=== PATIENT | male | born 1950 | race Caucasian/White ===

== ENCOUNTER 2019-05-16 14:30 | Outpatient (CLI) | payer MEDICARE, SELFPAY | END 2019-05-16 14:31 | disposition home or self-care (01) | PROVIDERS: PCP Radiology Neuroradiology; Visit Provider Internal Medicine Critical Care Medicine | DX: R91.8 Other nonspecific abnormal finding of lung field (principal) | CPT/HCPCS: 36415; 86698; 87327; 87385 ==

== ENCOUNTER 2019-06-03 14:16 | Outpatient (CLI) | payer MEDICARE, SELFPAY | END 2019-06-03 14:17 | disposition home or self-care (01) | PROVIDERS: PCP Radiology Neuroradiology; Visit Provider Internal Medicine Critical Care Medicine | DX: R91.8 Other nonspecific abnormal finding of lung field (principal); F17.210 Nicotine dependence, cigarettes, uncomplicated | CPT/HCPCS: 94010; 94726; 94729 ==

== ENCOUNTER 2019-06-13 09:48 | Outpatient (CLI) | payer MEDICARE, SELFPAY ==
--- NOTE | 2019-06-13 10:45 | CT_ITS ---
WS: [id number] CT CHEST WITHOUT INTRAVENOUS CONTRAST HISTORY: Lung mass TECHNIQUE: Contiguous 5 mm axial imaging performed on the thorax. Coronal and sagittal reformats are submitted. All CT scans at [facility] use at least one of these dose optimization techniq ues: automated exposure control; mA and/or kV adjustment per patient size (includes targeted exams wh ere dose is matched to clinical indication); or iterative reconstruction. CONTRAST: None DLP: 935.05 mGycm COMPARISON: PET CT 03/22/2019 Lungs and central airway: Mild pulmonary hyperinflation. Multiple nodules in the RIGHT upper lobe as seen on the prior PET/CT of 03/22/2019 are no longer present. Postsurgical changes and some dystrophi c calcifications or clips are noted adjacent to the medial RIGHT upper lobe mediastinum. There is a l inear scar at the RIGHT apex. No new pulmonary nodule or mass identified. No pneumonia. Pleura: No pleural effusion. Heart and pericardium: Cardiac size is normal. Cardiac stent is present along the LEFT anterior desce nding coronary artery. Mediastinum and jenni: Benign calcified lymph nodes. There are several smaller lymph nodes in the prec arinal which are similar in size to 03/22/2019 PET/CT. No increasing adenopathy. Vessels: Mild ectasia ascending aorta to 3.9 cm. Descending aorta is normal caliber. Chest wall and lower neck: No soft tissue masses. Upper abdomen: Benign splenic and hepatic granulomata. No adrenal mass. Osseous structures: Increase in thoracic kyphosis with multilevel degenerative disc disease in the th oracic spine. CT/CT chest wo con [id number] IMPRESSION: 1. Previously described nodules in the RIGHT upper lobe as seen on PET/CT from 03/22/2019 are no longer present. Postsurgical changes now seen in the RIGHT u pper lobe. 2. Stable mediastinal and hilar lymph nodes with no significant adenopathy. 3. Mild pulmonary hypertension and mild ectasia thoracic aorta.
== END 2019-06-13 09:49 | disposition home or self-care (01) ==
LOC: RADWPI 09:54
PROVIDERS: PCP Radiology Neuroradiology; Visit Provider Internal Medicine Critical Care Medicine
DX: I27.20 Pulmonary hypertension, unspecified (principal); I77.810 Thoracic aortic ectasia; R91.8 Other nonspecific abnormal finding of lung field
CPT/HCPCS: 71250

== ENCOUNTER 2019-06-16 07:00 | Outpatient (CLI) | payer MEDICARE, SELFPAY ==
[2019-06-16 09:05] LABS: Alanine Aminotransferase 25 U/L (0-41); Alkaline Phosphatase 97 IU/L (40-130); Anion Gap 15.3 (5-19); Aspartate Amino Transferase 24 U/L (0-40); Basophils % 0.5 %; Blood Urea Nitrogen 14 mg/dL (8-23); Calcium 9.7 mg/dL (8.5-10.5); Carbon Dioxide 26 mmol/L (22-29); Chloride 106 mmol/L (98-107); Eosinophils # 0.1 10^3/uL (0.0-0.8); Eosinophils % 1.3 %; Globulin 3.5 g/dL (1.3-4.6); Glomerular Filtration Rate 83.4 mL/min (90-130); Glucose 95 mg/dL (65-115); Hematocrit 44.4 % (42.0-52.0); Hemoglobin 14.5 g/dL (11.7-16.6); Lymphocytes # 2.4 10^3/uL (0.8-4.8); Lymphocytes % 31.7 %; Mean Corpuscular HGB Conc 32.7 g/dL (30.0-36.0); Mean Corpuscular Hemoglobin 27.5 pg (28.0-34.0); Mean Corpuscular Volume 84.1 fL (80-94); Mean Platelet Volume 10.2 fL (7.4-10.4); Monocytes # 0.6 10^3/uL (0.2-0.9); Monocytes % 7.5 %; Neutrophils # 4.4 10^3/uL (1.8-7.7); Neutrophils % 58.9 %; Nucleated Red Blood Cells % 0 %; Osmolality Calculated 292 mOsm/kg (285-295); Platelet Count 212 10^3/cmm (130-400); Potassium 4.3 mmol/L (3.5-5.1); Red Blood Count 5.28 10^6/uL (4.1-5.3); Sodium 143 mmol/L (136-145); Total Bilirubin 0.6 mg/dL (0.15-1.2); Total Protein 7.5 g/dL (6.6-8.7); White Blood Count 7.5 10^3/uL (4.0-10.0)
[2019-06-16 09:24] LABS: 25 Hydroxy Vitamin D 32 ng/mL (30-100)
[2019-06-16 09:40] LABS: Total Volume Urine 1750 ml
[2019-06-16 09:42] LABS: Calcium 24 Hour Urine 56 mg/24hr (100-300); Urine Calcium Result 3.2 mg/dL
[2019-06-16 09:49] LABS: Calcium 10.2 mg/dL (8.5-10.5); Parathyroid Hormone 27.6 pg/mL (15-65)
== END 2019-06-16 08:00 | disposition home or self-care (01) ==
LOC: LAB 06-26 09:40
PROVIDERS: PCP Radiology Neuroradiology; Visit Provider Internal Medicine Critical Care Medicine
DX: R91.8 Other nonspecific abnormal finding of lung field (principal); D86.9 Sarcoidosis, unspecified; Z79.899 Other long term (current) drug therapy
CPT/HCPCS: 36415; 80053; 82164; 82306; 82310; 82340; 82652; 83970; 85025; 86698; 87385

== ENCOUNTER 2019-06-27 12:43 | Outpatient (CLI) | payer MEDICARE, SELFPAY ==
[2019-06-27 14:40] LABS: Basophils % 0.4 %; Eosinophils # 0.1 10^3/uL (0.0-0.8); Eosinophils % 1.6 %; Hematocrit 43.4 % (42.0-52.0); Hemoglobin 13.7 g/dL (11.7-16.6); Lymphocytes # 2.5 10^3/uL (0.8-4.8); Lymphocytes % 35.5 %; Mean Corpuscular HGB Conc 31.6 g/dL (30.0-36.0); Mean Corpuscular Hemoglobin 26.7 pg (28.0-34.0); Mean Corpuscular Volume 84.4 fL (80-94); Mean Platelet Volume 9.8 fL (7.4-10.4); Monocytes # 0.5 10^3/uL (0.2-0.9); Monocytes % 6.7 %; Neutrophils # 3.9 10^3/uL (1.8-7.7); Neutrophils % 55.7 %; Nucleated Red Blood Cells % 0 %; Platelet Count 232 10^3/cmm (130-400); Red Blood Count 5.14 10^6/uL (4.1-5.3); Red Cell Distribution Width 13.8 % (12.1-15.1)
[2019-06-27 15:01] LABS: Carcinoembryonic Antigen 1.6 ng/mL (0.0-4.7)
[2019-06-27 15:12] LABS: Alanine Aminotransferase 28 U/L (0-41); Albumin Level 3.9 g/dL (3.5-5.2); Alkaline Phosphatase 95 IU/L (40-130); Anion Gap 16.3 (5-19); Aspartate Amino Transferase 29 U/L (0-40); Blood Urea Nitrogen 12 mg/dL (8-23); Calcium 9.4 mg/dL (8.5-10.5); Carbon Dioxide 22 mmol/L (22-29); Chloride 106 mmol/L (98-107); Globulin 2.8 g/dL (1.3-4.6); Glomerular Filtration Rate 66.2 mL/min (90-130); Glucose 108 mg/dL (65-115); Osmolality Calculated 287 mOsm/kg (285-295); Potassium 4.3 mmol/L (3.5-5.1); Sodium 140 mmol/L (136-145); Total Bilirubin 0.2 mg/dL (0.15-1.2); Total Protein 6.7 g/dL (6.6-8.7)
--- NOTE | 2019-06-28 11:19 | ONC CON_ITS ---
Dr. Cornell New Patient Note Patient: Henry Blackwell Unit #: [id number]: 1950 Dicatated By: Malaika Cornell M.D.Date of Visit: Jun 27, 2019 Onc MED New Patient/Consult Referring Physician: Dr. TANESHA SEE M.D. History of Present Illness: Mr. Henry Blackwell , is a 69-year-old gentleman with a history of adenocarcinoma of the rectum which was diagnosed on 02/05/2018 when he underwent colonoscopy exam for history of hematochezia and abdominal pain. As far pathology report adenocarcinoma seen in rectal polyp biopsy whereas transverse colon polyp showed sessile serrated adenoma. CT PET scan done on 02/14/2018 showed very intense area approximately 2 cm in diameter that is high in the rectum consistent with rectal carcinoma and no other abnormality seen subsequently as per Dr. Denny Howell's note, patient underwent low anterior resection and final pathology report showed 2 cm colorectal cancer that was barely into submucosa e.g. T1, N0 lesion only 2 lymph nodes were identified in the specimen. Patient was seen by Dr. Denny howell, medical oncologist who recommended observation alone and had been followed by him on 3 monthly basis and last visit was in March 2019, labs done on 02/22/2019's his CEA was 0.7 and hemoglobin was 13.4 marker 41.9 and but his last CT PET scan done on 03/22/2019 showed enlarging mass in the right upper lobe abutting the mediastinum with increase in metabolic activity size up to 3.2 cm and an additional mass which has developed in the right lung apex abutting pleural margin in the apex with increase metabolic activity SUV of 6 as per patient he was referred to surgeon and underwent excisional biopsy of right upper lobe lung mass and 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 He has seen picking tech there in [place], and later on decided to switch his care to Dr. See in [place] who repeated CT scan of chest on 06/13/2019 which when compared with CT PET scan done on 03/22/2019 showed previously described nodule in the right upper lobe are no longer present and postsurgical changes now seen in the right upper lobe. Stable mediastinal and hilar lymph nodes with no significant adenopathy. As per Dr. 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 Patient denies any melena or hematochezia, denies any abdominal pain, denies any weight loss, denies any jaundice. Patient said during his last visit with Dr. Denny howell in March 2019, his lab workup did not show any evidence of malignancy but PET scan done in March 2019 showed abnormality in the right lung and there was a concern but malignancy, which was later on confirmed as sarcoidosis and now with spontaneous resolution. Past Medical History: Mr. Blackwell's medical history consists of coronary artery disease, gastroesophageal reflux disease, hiatal hernia, history of colon cancer, history of rheumatic fever, and hyperlipidemia. Past Surgical History: Mr. Blackwell's surgical/procedural history consists of bronchoscopy, hernia repair, and stented coronary artery. Medications: Albuterol Sulfate (sensor) 1 Inhalation (of 108 (90 base) mcg/act) Aerosol Powder, Breath Activated Inhalation four times a day PRN, Atorvastatin Calcium 1 Tablet (of 20 mg) Oral at bedtime, Clopidogrel Bisulfate 1 Tablet (of 75 mg) Oral daily, Ferrous Sulfate 1 Tablet (of 325 (65 fe) mg) Oral daily, Finasteride 1 Tablet (of 5 mg) Oral at bedtime, Metoprolol Tartrate 1 Tablet (of 25 mg) Oral daily, Multivitamin Adult 1 Tablet Oral daily, Pantoprazole Sodium 1 Tablet (of 40 mg) Tablet, enteric coated Oral b.i.d. Allergies: Aspirin, HYDROcodone-Acetaminophen, Penicillins, and Sulfa Antibiotics. Social History: Mr. Blackwell is and he is an uknown. Mr. Blackwell quit smoking 48 years ago but had smoked 1.0 pack/day for 3 years. He is a former drinker. Family History: Mr. Blackwell's father is : coronary artery disease. Review Of Symptoms: Constitutional - Appetite is fair and weight is stable. No fever, hot flashes, or night sweats. Positive for chills. Energy level is fair, ENMT - Positive for sinus congestion/drainage. No mouth sores. No sore throat or difficulty swallowing, Hematologic/Lymphatic - No abnormal bruising or bleeding, Respiratory - Positive for shortness of breath. Positive for cough. No pleuritic pain or hemoptysis, Cardiovascular - Positive for pain. No palpitations, Gastrointestinal - Positive for nausea, no vomiting. Occasional heartburn and acid reflux. No diarrhea or constipation. No blood in the stool or black stools, Genitourinary (M) - No dysuria or hematuria. Positive for urinary frequency. No urgency or incontinence, Musculoskeletal - No joint or bone pain, Neurologic - Occasional headache and dizziness. No numbness/paresthesias or other focal neurologic symptoms, Psychiatric - Positive for mild anxiety and depression. No insomnia. Vital Signs: Performed on Jun 27, 2019 13:05: 3, 28.09, 2.12 sq.m, 71.00 in, 98 %, 72 /min, 20 /min, 130/77 mm(hg), 98.9 F (HIGH), and 201.4 lbs (HIGH). Performance Status: 0 - Fully active, able to carry on all predisease activities without restrictions. (ECOG) Physical Examination: ENMT - No oral exudates, ulcers, masses, thrush or mucositis. Oropharynx clear. Tongue normal, Respiratory - Lungs are clear to auscultation without rhonchi or wheezing, Cardiovascular - Regular rate and rhythm of heart, Abdomen - Non-tender, non-distended, Good bowel sounds. No guarding or rebound tenderness. No pulsatile masses, Extremities - no edema. Lab/Imaging: Most recent lab results are not available for this patient. Impression: History of colorectal cancer status post low anterior resection for 2 cm invasive tumor that was barely into submucosa T1,, 2 lymph nodes were identified and examined showed no evidence of disease ,N0 as per medical record, diagnosed in February 2018 had been followed by medical oncologist Dr. Denny jarrett on 3 monthly basis with CEA/LFTs and CT PET scans next Last PET scan done on 03/22/2019 showed right hilar and upper lobe FDG positive lesions, patient underwent right upper lobe excisional biopsy which showed sarcoidosis Follow-up CT scan of chest done on 06/13/2019 showed spontaneous resolution of right hilar abnormalities and postsurgical scar. Now being followed by pulmonology. Plan: Discussed with patient regarding his disease status, as per medical records patient has history of early-stage colorectal cancer with suboptimal lymph node evaluation, diagnosed in February 2018 status post low anterior resection, postoperatively observation alone was recommended and had been followed by Dr. Denny howell, medical oncology with a no evidence of recurrence of disease as per last note from March 2019 and at that time follow-up CT PET scan showed enlarging mass in the right upper lobe abutting mediastinum with increased metabolic activity site 3.3 cm and additional mass which has developed in right lung apex abutting pleural margin in the apex with increased activity. And concern was recurrence of disease and he underwent excisional biopsy of right upper lobe mass which confirmed sarcoidosis and follow-up CT scan done 06/13/2019 confirmed spontaneous resolution of sarcoidosis, as per patient did not take any medicine for this. So clinically, there is no signs symptoms suggestive of recurrence of disease and so far workup done by Dr. Denny howell showed no evidence of recurrence of disease. And at this point we will continue to observe and he will return to clinic in 6 months with CBC CMP and CBC patient was advised to call us in case he has any evidence of gross bleeding or any jaundice or any new symptoms otherwise return to clinic in 6 months with CBC CMP and CEA. Signed By: Malaika Cornell M.D. <<Signature on File>>
== END 2019-06-27 12:44 | disposition home or self-care (01) ==
LOC: ONCMED 12:45
PROVIDERS: PCP Family Medicine; Referring Provider Internal Medicine Critical Care Medicine; Visit Provider Internal Medicine Hematology & Oncology
DX: Z85.038 Personal history of other malignant neoplasm of large intestine (principal); Z90.49 Acquired absence of other specified parts of digestive tract; Z87.09 Personal history of other diseases of the respiratory system
CPT/HCPCS: 36415; 80053; 82378; 85025; 99203

== ENCOUNTER 2019-09-04 16:21 | Outpatient (CLI) | payer MEDICARE, SELFPAY ==
--- NOTE | 2019-09-04 17:01 | XR_ITS ---
WS: [id number] XR chest 2V* [id number] REASON FOR EXAM: Lung Mass FINDINGS: Postop changes are seen off the azygos lobe region on the right there is no recurrent yuriy s in this area is seen. The heart is normal. The remaining lung abdalla show normal aeration. No pneumonia, pleural effusion, pulmonary edema, and no mass effect is seen. The hilum and apices normal. XR/XR chest 2V* [id number] IMPRESSION: Postop changes right upper lung but no recurrent masses seen.
== END 2019-09-04 16:22 | disposition home or self-care (01) ==
LOC: RAD 16:26
PROVIDERS: PCP Family Medicine; Visit Provider Internal Medicine Critical Care Medicine
DX: R91.8 Other nonspecific abnormal finding of lung field (principal)
CPT/HCPCS: 71046

== ENCOUNTER 2019-10-01 20:00 | Outpatient (CLI) | payer MEDICARE, SELFPAY | END 2019-10-01 20:01 | disposition home or self-care (01) | LOC: SLEEP 10-02 09:29 | PROVIDERS: PCP Family Medicine; Visit Provider Internal Medicine Critical Care Medicine | DX: G47.10 Hypersomnia, unspecified (principal) | CPT/HCPCS: 95810 ==

== ENCOUNTER 2019-11-29 20:00 | Outpatient (CLI) | payer MEDICARE, SELFPAY | END 2019-11-29 20:01 | disposition home or self-care (01) | LOC: SLEEP 12-02 08:55 | PROVIDERS: PCP Family Medicine; Visit Provider Internal Medicine Critical Care Medicine | DX: G47.33 Obstructive sleep apnea (adult) (pediatric) (principal) | CPT/HCPCS: 95811 ==

== ENCOUNTER 2019-12-31 09:31 | Outpatient (CLI) | payer MEDICARE, SELFPAY ==
[2019-12-31 10:14] LABS: Basophils % 0.1 %; Hematocrit 43.7 % (42.0-52.0); Hemoglobin 14.3 g/dL (11.7-16.6); Lymphocytes # 1.8 10^3/uL (0.8-4.8); Lymphocytes % 11.6 %; Mean Corpuscular HGB Conc 32.7 g/dL (30.0-36.0); Mean Corpuscular Hemoglobin 28.5 pg (28.0-34.0); Mean Corpuscular Volume 87.1 fL (80-94); Mean Platelet Volume 9.8 fL (7.4-10.4); Monocytes # 0.6 10^3/uL (0.2-0.9); Monocytes % 3.8 %; Neutrophils # 12.69 10^3/uL (1.8-7.7); Neutrophils % 84.2 %; Nucleated Red Blood Cells % 0 %; Platelet Count 244 10^3/cmm (130-400); Red Blood Count 5.02 10^6/uL (4.1-5.3); Red Cell Distribution Width 12.7 % (12.1-15.1); White Blood Count 15.1 10^3/uL (4.0-10.0)
[2019-12-31 10:45] LABS: Carcinoembryonic Antigen 2.2 ng/mL (0.0-4.7)
[2019-12-31 10:56] LABS: Alanine Aminotransferase 25 U/L (0-41); Albumin Level 4.3 g/dL (3.5-5.2); Alkaline Phosphatase 77 IU/L (40-130); Aspartate Amino Transferase 29 U/L (0-40); Blood Urea Nitrogen 20 mg/dL (8-23); Calcium 9.4 mg/dL (8.5-10.5); Carbon Dioxide 20 mmol/L (22-29); Chloride 106 mmol/L (98-107); Globulin 2.9 g/dL (1.3-4.6); Glomerular Filtration Rate 83.4 mL/min (90-130); Glucose 129 mg/dL (65-115); Osmolality Calculated 288 mOsm/kg (285-295); Sodium 137 mmol/L (136-145); Total Bilirubin 0.6 mg/dL (0.15-1.2); Total Protein 7.2 g/dL (6.6-8.7)
== END 2019-12-31 09:32 | disposition home or self-care (01) ==
LOC: ONCMED 09:34
PROVIDERS: PCP Family Medicine; Visit Provider Internal Medicine Hematology & Oncology
DX: C20 Malignant neoplasm of rectum (principal)
CPT/HCPCS: 80053; 82378; 85025

== ENCOUNTER 2020-01-03 05:43 | Outpatient (CLI) | payer MEDICARE, SELFPAY ==
--- NOTE | 2020-01-03 12:34 | ONC FU_ITS ---
Dr. Cornell follow up note Patient: Hnery Blackwell Unit #: [id number]: 1950 Dicatated By: Malaika Cornell M.D.Date of Visit:Jan 03, 2020 Onc Med Follow-up/Prog Note History of Present Illness: Mr. Henry Blackwell , is a 69-year-old gentleman with a history of adenocarcinoma of the rectum which was diagnosed on 02/05/2018 when he underwent colonoscopy exam for history of hematochezia and abdominal pain. As far pathology report adenocarcinoma seen in rectal polyp biopsy whereas transverse colon polyp showed sessile serrated adenoma. CT PET scan done on 02/14/2018 showed very intense area approximately 2 cm in diameter that is high in the rectum consistent with rectal carcinoma and no other abnormality seen subsequently as per Dr. Denny Howell's note, patient underwent low anterior resection and final pathology report showed 2 cm colorectal cancer that was barely into submucosa e.g. T1, N0 lesion only 2 lymph nodes were identified in the specimen. Patient was seen by Dr. Denny howell, medical oncologist who recommended observation alone and had been followed by him on 3 monthly basis and last visit was in March 2019, labs done on 02/22/2019's his CEA was 0.7 and hemoglobin was 13.4 marker 41.[address] last [address] PET scan done on 03/22/2019 showed enlarging mass in the right upper lobe abutting the mediastinum with increase in metabolic activity size up to 3.2 cm and an additional mass which has developed in the right lung apex abutting pleural margin in the apex with increase metabolic activity SUV of 6 as per patient he was referred to surgeon and underwent excisional biopsy of right upper lobe lung mass and 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 He has seen boiler mechanic there in [place], and later on decided to switch his care to Dr. See in [place] who repeated CT scan of chest on 06/13/2019 which when compared with CT PET scan done on 03/22/2019 showed previously described nodule in the right upper lobe are no longer present and postsurgical changes now seen in the right upper lobe. Stable mediastinal and hilar lymph nodes with no significant adenopathy. As per Dr. 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 Patient denies any melena or hematochezia, denies any abdominal pain, denies any weight loss, denies any jaundice. Patient said during his last visit with Dr. Denny howell in March 2019, his lab workup did not show any evidence of malignancy but PET scan done in March 2019 showed abnormality in the right lung and there was a concern but malignancy, which was later on confirmed as sarcoidosis and now with spontaneous resolution. Follow-up chest x-ray done on September 04, [address] See showed postop changes right upper lung with no recurrent masses seen Came for follow-up, denies any specific complaints, no fever chills, no nausea or vomiting, no diarrhea constipation, no melena or hematochezia, no jaundice, no abdominal pain, appetite is good, no hemoptysis or hematemesis, no shortness of breath. Patient said about 2-1/2-month ago he was diagnosed with COVID 19 but he was asymptomatic and was quarantined for 2 weeks and recovered without any problem. Medications: Albuterol Sulfate (sensor) 1 Inhalation (of 108 (90 base) mcg/act) Aerosol Powder, Breath Activated Inhalation four times a day PRN, Atorvastatin Calcium 1 Tablet (of 20 mg) Oral at bedtime, Clopidogrel Bisulfate 1 Tablet (of 75 mg) Oral daily, Ferrous Sulfate 1 Tablet (of 325 (65 fe) mg) Oral daily, Finasteride 1 Tablet (of 5 mg) Oral at bedtime, Metoprolol Tartrate 1 Tablet (of 25 mg) Oral daily, Multivitamin Adult 1 Tablet Oral daily, Pantoprazole Sodium 1 Tablet (of 40 mg) Tablet, enteric coated Oral b.i.d. Allergies: Aspirin, HYDROcodone-Acetaminophen, Penicillins, and Sulfa Antibiotics. Review of Systems: Review of Systems is not available for this patient. Vital Signs: Performed on Jan 03, 2020 08:48 Height - 71.00 in Weight - 197.2 lbs (LOW) BSA - 2.10 sq.m BMI - 27.50 Temperature - 97.8 F (LOW) Pulse - 61 /min Respiration - 20 /min BP - 128/78 mm(hg) O2 Sat - 97 % Pain - 0 Performance Status: 0 - Fully active, able to carry on all predisease activities without restrictions. (ECOG) Physical Examination: ENMT - No mouth sores, no thrush, no jaundice, Respiratory - Lungs are clear to auscultation, Cardiovascular - Regular rate and rhythm of heart, Abdomen - Soft, bowel sounds present, Extremities - No visible edema. Lab/Imaging: Most recent lab results are not available for this patient. Impression: History of colorectal cancer status post low anterior resection for 2 cm invasive tumor that was barely into submucosa T1,, 2 lymph nodes were identified and examined showed no evidence of disease ,N0 as per medical record, diagnosed in February 2018 had been followed by medical oncologist Dr. Denny jarrett on 3 monthly basis with CEA/LFTs and CT PET scans next Last PET scan done on 03/22/2019 showed right hilar and upper lobe FDG positive lesions, patient underwent right upper lobe excisional biopsy which showed sarcoidosis Follow-up CT scan of chest done on 06/13/2019 showed spontaneous resolution of right hilar abnormalities and postsurgical scar. Now being followed by pulmonology. Plan: Discussed with patient regarding his labs white blood count 15.1 hemoglobin 14.3 hematocrit 43.7, platelets 244 CMP within normal limits CEA 2.2 Clinically, patient doing well with no signs symptom suggestive of recurrence of disease, his lab work-up is within normal range except mild leukocytosis. But patient denies any symptoms, will monitor and return to clinic in 6 months with CBC CMP Signed By: Malaika Cornell M.D. <<Signature on File>>
== END 2020-01-03 05:44 | disposition home or self-care (01) ==
PROVIDERS: PCP Family Medicine; Visit Provider Internal Medicine Hematology & Oncology
DX: Z08 Encounter for follow-up examination after completed treatment for malignant neoplasm (principal); Z85.048 Personal history of other malignant neoplasm of rectum, rectosigmoid junction, and anus; D86.9 Sarcoidosis, unspecified
CPT/HCPCS: G0463

== ENCOUNTER 2020-03-16 14:37 | Outpatient (CLI) | payer MEDICARE, SELFPAY ==
--- NOTE | 2020-03-16 14:53 | XR_ITS ---
WS: [id number] Chest 2 views, 03/16/2020 Clinical Data: Lung nodule Comparison: PA and lateral chest, 09/04/2019. Findings: No nodules, masses or effusions are seen. The heart is normal. The pulmonary vascularity is not increased. No pneumonia or pneumothorax is seen. There are clips in the right anterior chest. Th e aortic arch and descending aorta are tortuous. XR/XR chest 2V* [id number] Impression: Atherosclerosis.
== END 2020-03-16 14:38 | disposition home or self-care (01) ==
PROVIDERS: PCP Family Medicine; Visit Provider Internal Medicine Critical Care Medicine
DX: R91.8 Other nonspecific abnormal finding of lung field (principal); I70.90 Unspecified atherosclerosis
CPT/HCPCS: 71046

== ENCOUNTER 2020-04-24 09:07 | Outpatient (CLI) | payer MEDICARE, SELFPAY ==
[2020-04-24 09:43] LABS: Basophils % 0.6 %; Eosinophils # 0.1 10^3/uL (0.0-0.8); Eosinophils % 1.8 %; Hematocrit 46.3 % (42.0-52.0); Hemoglobin 15.1 g/dL (11.7-16.6); Lymphocytes # 2.3 10^3/uL (0.8-4.8); Lymphocytes % 33.9 %; Mean Corpuscular HGB Conc 32.6 g/dL (30.0-36.0); Mean Corpuscular Hemoglobin 28.2 pg (28.0-34.0); Mean Corpuscular Volume 86.5 fL (80-94); Mean Platelet Volume 9.9 fL (7.4-10.4); Monocytes # 0.5 10^3/uL (0.2-0.9); Monocytes % 7.4 %; Neutrophils # 3.85 10^3/uL (1.8-7.7); Neutrophils % 56.2 %; Nucleated Red Blood Cells % 0 %; Platelet Count 222 10^3/cmm (130-400); Red Blood Count 5.35 10^6/uL (4.1-5.3); Red Cell Distribution Width 12.4 % (12.1-15.1); White Blood Count 6.9 10^3/uL (4.0-10.0)
[2020-04-24 09:56] LABS: Alanine Aminotransferase 26 U/L (0-41); Albumin Level 4.1 g/dL (3.5-5.2); Alkaline Phosphatase 93 IU/L (40-130); Anion Gap 11.9 (5-19); Aspartate Amino Transferase 21 U/L (0-40); Blood Urea Nitrogen 15 mg/dL (8-23); Calcium 9.6 mg/dL (8.5-10.5); Carbon Dioxide 26 mmol/L (22-29); Chloride 104 mmol/L (98-107); Glucose 93 mg/dL (65-115); Osmolality Calculated 287 mOsm/kg (285-295); Potassium 3.9 mmol/L (3.5-5.1); Sodium 138 mmol/L (136-145); Total Bilirubin 0.6 mg/dL (0.15-1.2); Total Protein 7.1 g/dL (6.6-8.7)
--- NOTE | 2020-04-24 12:29 | ONC FU_ITS ---
Dr. Cornell follow up note Patient: Henry Blackwell Unit #: [id number]: 1950 Dicatated By: Malaika Cornell M.D.Date of Visit:Apr 24, 2020 Onc Med Follow-up/Prog Note History of Present Illness: Mr. Henry Blackwell , is a 69-year-old gentleman with a history of adenocarcinoma of the rectum which was diagnosed on 02/05/2018 when he underwent colonoscopy exam for history of hematochezia and abdominal pain. As far pathology report adenocarcinoma seen in rectal polyp biopsy whereas transverse colon polyp showed sessile serrated adenoma. CT PET scan done on 02/14/2018 showed very intense area approximately 2 cm in diameter that is high in the rectum consistent with rectal carcinoma and no other abnormality seen subsequently as per Dr. Denny Howell's note, patient underwent low anterior resection and final pathology report showed 2 cm colorectal cancer that was barely into submucosa e.g. T1, N0 lesion only 2 lymph nodes were identified in the specimen. Patient was seen by Dr. Denny howell, medical oncologist who recommended observation alone and had been followed by him on 3 monthly basis and last visit was in March 2019, labs done on 02/22/2019's his CEA was 0.7 and hemoglobin was 13.4 marker 41.9 [address] PET scan done on 03/22/2019 showed enlarging mass in the right upper lobe abutting the mediastinum with increase in metabolic activity size up to 3.2 cm and an additional mass which has developed in the right lung apex abutting pleural margin in the apex with increase metabolic activity SUV of 6 as per patient he was referred to surgeon and underwent excisional biopsy of right upper lobe lung mass and 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 He has seen business ethics professor there in [place], and later on decided to switch his care to Dr. See in [place] who repeated CT scan of chest on 06/13/2019 which when compared with CT PET scan done on 03/22/2019 showed previously described nodule in the right upper lobe are no longer present and postsurgical changes now seen in the right upper lobe. Stable mediastinal and hilar lymph nodes with no significant adenopathy. As per Dr. 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 Patient denies any melena or hematochezia, denies any abdominal pain, denies any weight loss, denies any jaundice. Patient said during his last visit with Dr. Denny howell in March 2019, his lab workup did not show any evidence of malignancy but PET scan done in March 2019 showed abnormality in the right lung and there was a concern but malignancy, which was later on confirmed as sarcoidosis and now with spontaneous resolution. Follow-up chest x-ray done on September 04, [address] See showed postop changes right upper lung with no recurrent masses seen Came for follow-up, complaining of off and on lower abdominal/pelvic pain, colicky type, sometimes relieved by bowel movement or passing gas. Also complaining of constipation, recently started taking Metamucil twice a day without much help. But no melena or hematochezia, no lower back pain, no dysuria or hematuria, no fever chills, no jaundice, no hemoptysis or hematemesis, no mucus in the stool., Appetite is good. Medications: Albuterol Sulfate (sensor) 1 Inhalation (of 108 (90 base) mcg/act) Aerosol Powder, Breath Activated Inhalation four times a day PRN, Atorvastatin Calcium 1 Tablet (of 20 mg) Oral at bedtime, Clopidogrel Bisulfate 1 Tablet (of 75 mg) Oral daily, Ferrous Sulfate 1 Tablet (of 325 (65 fe) mg) Oral daily, Finasteride 1 Tablet (of 5 mg) Oral at bedtime, Metoprolol Tartrate 1 Tablet (of 25 mg) Oral daily, Multivitamin Adult 1 Tablet Oral daily, Pantoprazole Sodium 1 Tablet (of 40 mg) Tablet, enteric coated Oral b.i.d. Allergies: Aspirin, HYDROcodone-Acetaminophen, Penicillins, and Sulfa Antibiotics. Review of Systems: Review of Systems is not available for this patient. Vital Signs: Performed on Apr 24, 2020 11:24 Height - 71.00 in Weight - 200.6 lbs (HIGH) BSA - 2.11 sq.m BMI - 27.98 Temperature - 97.9 F (LOW) Pulse - 71 /min BP - 117/68 mm(hg) O2 Sat - 98 % Pain - 3 Performance Status: 1 - No physically strenuous activity, but ambulatory and able to carry out light or sedentary work (e.g. office work, light house work). (ECOG) Physical Examination: ENMT - No mouth sores, no thrush, no jaundice, Respiratory - Lungs are clear to auscultation, Cardiovascular - Regular rate and rhythm of heart, Abdomen - Soft, bowel sounds present mild tenderness in lower quadrant on deep palpation but no rebound tenderness, no mass palpable, Extremities - No visible edema. Lab/Imaging: Test performed on Dec 31, 2019 10:00 Sodium 137 mmol/L Potassium 4.0 mmol/L Chloride 106 mmol/L CO2 20 mmol/L Anion Gap 15.0 BUN 20 mg/dL Creatinine 0.9 mg/dL Cr Clearance (Est) 96.63 mL/min eGFR 83.4 mL/min Glucose 129 mg/dL Osmolality - Calculated 288 mOsm/kg Calcium 9.4 mg/dL Protein, Total 7.2 g/dL Albumin 4.3 g/dL Globulin 2.9 g/dL Bilirubin, Total 0.6 mg/dL ALT (SGPT) 25 U/L AST (SGOT) 29 U/L Alkaline Phosphatase 77 IU/L WBC 15.1 10 3/uL RBC 5.02 10 6/uL HGB 14.3 g/dL HCT 43.7 % MCV 87.1 fL MCH 28.5 pg MCHC 32.7 g/dL RDW 12.7 % Platelet Count 244 10 3/cmm MPV 9.8 fL Neutrophils 12.69 10 3/uL Lymphocytes 1.8 10 3/uL Monocytes 0.6 10 3/uL Eosinophils 0.0 10 3/uL Basophils 0.0 10 3/uL Neutrophil % 84.2 % Lymphocyte % 11.6 % Monocyte % 3.8 % Eosinophil % 0.0 % Basophils % 0.1 % NRBC % 0 % CEA 2.2 ng/mL Impression: History of colorectal cancer status post low anterior resection for 2 cm invasive tumor that was barely into submucosa T1,, 2 lymph nodes were identified and examined showed no evidence of disease ,N0 as per medical record, diagnosed in February 2018 had been followed by medical oncologist Dr. Denny jarrett on 3 monthly basis with CEA/LFTs and CT PET scans next Last PET scan done on 03/22/2019 showed right hilar and upper lobe FDG positive lesions, patient underwent right upper lobe excisional biopsy which showed sarcoidosis Follow-up CT scan of chest done on 06/13/2019 showed spontaneous resolution of right hilar abnormalities and postsurgical scar. Now being followed by pulmonology. Plan: Discussed with patient regarding his labs white blood count 6.9 hemoglobin 15.1 hematocrit 46.3 platelets 222,000 CMP within normal limits Clinically, patient doing reasonably well now in mild to moderate distress due to persistent off and on lower abdominal/pelvic pain, etiology unclear but could be due to anastomosis site stenosis or external compression from adhesions or recurrence of disease but less likely. At this point we will refer him to Dr. Rosales, optimization consultant in [place], [place], who has seen him before. For colonoscopy to rule out local recurrence versus anastomosis stenosis versus other pathology and also consider CT scan of abdomen pelvis. Patient was advised in case there is a worsening of pain, he need to go to emergency room immediately And also advised to stop Metamucil and try small meals/nonbulky, but more often until evaluation is completed otherwise we will see him back after CT scan of abdomen pelvis for further discussion. Signed By: Malaika Cornell M.D. <<Signature on File>>
== END 2020-04-24 09:08 | disposition home or self-care (01) ==
LOC: ONCMED 09:13
PROVIDERS: PCP Family Medicine; Visit Provider Internal Medicine Hematology & Oncology
DX: Z08 Encounter for follow-up examination after completed treatment for malignant neoplasm (principal); Z85.048 Personal history of other malignant neoplasm of rectum, rectosigmoid junction, and anus; R10.2 Pelvic and perineal pain; Z87.09 Personal history of other diseases of the respiratory system; Z90.49 Acquired absence of other specified parts of digestive tract; Z98.0 Intestinal bypass and anastomosis status
CPT/HCPCS: 36415; 80053; 85025; 99214

== ENCOUNTER 2020-07-03 08:06 | Outpatient (CLI) | payer MEDICARE, SELFPAY ==
--- NOTE | 2020-07-03 | CT_ITS ---
WS: [id number] CT scan of the abdomen and pelvis with Oral and IV contrast. Additional two-dimensional coronal and s agittal reconstruction was performed. 07/03/2020 Clinical Data: rectal cancer Comparison: None. DLP: 1118.[address] scans at [facility] use at least one of these dose optimization techniques: automat ed exposure control; mA and/or kV adjustment per patient size (includes targeted exams where dose is matched to clinical indication); or iterative reconstruction. Findings: The lower lungs show no nodules, masses or effusions. The liver, gallbladder, spleen, adrenal glands and pancreas are normal. The kidneys show equal bilateral contrast excretion with no cyst or masses. No hydronephrosis or shazia l calculi are seen. The abdominal aorta is normal in size with calcification in the wall. No appendicitis or diverticulitis is seen. Oral contrast is in the stomach and small bowel and there is no bowel dilatation. There are sutures noted at the junction of the sigmoid colon and rectum. Ther e is a moderate amount of fecal material in the colon. No abscess, adenopathy, ascites, mass, obstruc tion or free air is seen. The bladder is unremarkable. No inguinal hernia is seen. The prostate is en larged. The bones of the lower thorax, lumbar spine, pelvis, and hips show degenerative change with degenerat dewayne disc disease of the lower thoracic and lumbar vertebral bodies. CT/CT abdomen pelvis w con* [id number] Impression: 1. Negative for acute intra-abdominal or pelvic abnormalities. 2. Negative for metastatic lesions of the liver or skeleton.
[2020-07-03 08:55] LABS: Basophils % 0.4 %; Eosinophils # 0.1 10^3/uL (0.0-0.8); Hematocrit 45.2 % (42.0-52.0); Hemoglobin 14.6 g/dL (11.7-16.6); Lymphocytes # 2.1 10^3/uL (0.8-4.8); Lymphocytes % 20.2 %; Mean Corpuscular HGB Conc 32.3 g/dL (30.0-36.0); Mean Corpuscular Volume 86.8 fL (80-94); Mean Platelet Volume 10.2 fL (7.4-10.4); Monocytes # 0.7 10^3/uL (0.2-0.9); Monocytes % 6.3 %; Neutrophils # 7.55 10^3/uL (1.8-7.7); Neutrophils % 71.9 %; Nucleated Red Blood Cells % 0 %; Platelet Count 231 10^3/cmm (130-400); Red Blood Count 5.21 10^6/uL (4.1-5.3); Red Cell Distribution Width 12.5 % (12.1-15.1); White Blood Count 10.5 10^3/uL (4.0-10.0)
[2020-07-03] MEDS: iohexol 300 mg/mL 50 mL Btl PO (09:10)
[2020-07-03 09:17] LABS: Alanine Aminotransferase 28 U/L (0-41); Alkaline Phosphatase 93 IU/L (40-130); Anion Gap 13.2 (5-19); Aspartate Amino Transferase 24 U/L (0-40); Blood Urea Nitrogen 19 mg/dL (8-23); Calcium 9.1 mg/dL (8.5-10.5); Carbon Dioxide 24 mmol/L (22-29); Chloride 106 mmol/L (98-107); Globulin 3.2 g/dL (1.3-4.6); Glucose 97 mg/dL (65-115); Osmolality Calculated 290 mOsm/kg (285-295); Potassium 4.2 mmol/L (3.5-5.1); Sodium 139 mmol/L (136-145); Total Bilirubin 0.3 mg/dL (0.15-1.2); Total Protein 7.2 g/dL (6.6-8.7)
[2020-07-03] MEDS: iohexol 300 mg/mL 100 mL Btl IV (10:28)
== END 2020-07-03 08:07 | disposition home or self-care (01) ==
PROVIDERS: PCP Family Medicine; Visit Provider Internal Medicine Hematology & Oncology
DX: C20 Malignant neoplasm of rectum (principal)
CPT/HCPCS: 36415; 74177; 80053; 85025; Q9967

== ENCOUNTER 2020-07-06 05:35 | Outpatient (CLI) | payer MEDICARE, SELFPAY ==
--- NOTE | 2020-07-06 16:31 | ONC FU_ITS ---
Dr. Cornell follow up note Patient: Henry Blackwell Unit #: [id number]: 1950 Dicatated By: Malaika Cornell M.D.Date of Visit:Jul 06, 2020 Onc Med Follow-up/Prog Note History of Present Illness: Mr. Henry Blackwell , is a 70-year-old gentleman with a history of adenocarcinoma of the rectum which was diagnosed on 02/05/2018 when he underwent colonoscopy exam for history of hematochezia and abdominal pain. As far pathology report adenocarcinoma seen in rectal polyp biopsy whereas transverse colon polyp showed sessile serrated adenoma. CT PET scan done on 02/14/2018 showed very intense area approximately 2 cm in diameter that is high in the rectum consistent with rectal carcinoma and no other abnormality seen subsequently as per Dr. Denny Howell's note, patient underwent low anterior resection and final pathology report showed 2 cm colorectal cancer that was barely into submucosa e.g. T1, N0 lesion only 2 lymph nodes were identified in the specimen. Patient was seen by Dr. Denny howell, medical oncologist who recommended observation alone and had been followed by him on 3 monthly basis and last visit was in March 2019, labs done on 02/22/2019's his CEA was 0.7 and hemoglobin was 13.4 marker 41.9 and but his last [address] PET scan done on 03/22/2019 showed enlarging mass in the right upper lobe abutting the mediastinum with increase in metabolic activity size up to 3.2 cm and an additional mass which has developed in the right lung apex abutting pleural margin in the apex with increase metabolic activity SUV of 6 as per patient he was referred to surgeon and underwent excisional biopsy of right upper lobe lung mass and 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 He has seen certified alcohol and drug counselor there in [place], and later on decided to switch his care to Dr. See in [place] who repeated CT scan of chest on 06/13/2019 which when compared with CT PET scan done on 03/22/2019 showed previously described nodule in the right upper lobe are no longer present and postsurgical changes now seen in the right upper lobe. Stable mediastinal and hilar lymph nodes with no significant adenopathy. As per Dr. 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 Patient denies any melena or hematochezia, denies any abdominal pain, denies any weight loss, denies any jaundice. Patient said during his last visit with Dr. Denny howell in March 2019, his lab workup did not show any evidence of malignancy but PET scan done in March 2019 showed abnormality in the right lung and there was a concern but malignancy, which was later on confirmed as sarcoidosis and now with spontaneous resolution. Follow-up chest x-ray done on September 04, [address] See showed postop changes right upper lung with no recurrent masses seenFollow-up CT scan of her abdomen pelvis done on July 05, 2020 shows negative for acute intra-abdominal or pelvic abnormality negative for metastatic disease or recurrence of disease underwent colonoscopy on July 01, 2020 shows 5 mm polyps in the rectum removed, benign patent end-to-end colocolonic anastomosis with healthy-appearing mucosa. Diverticulosis in descending colon. Came for follow-up, denies any specific complaint except off and on left lower quadrant pain/discomfort is follow-up CT scan of abdomen pelvis showed no abnormality and colonoscopy shows no abnormality. Patient has history of degenerative joint disease involving spine, is left lower quadrant pain/discomfort could be referred pain and as per patient recently he was diagnosed with BPH, now being followed by urologist. Denies any hematuria denies any melena or hematochezia denies any hemoptysis or hematemesis denies any jaundice. Medications: Albuterol Sulfate (sensor) 1 Inhalation (of 108 (90 base) mcg/act) Aerosol Powder, Breath Activated Inhalation four times a day PRN, Atorvastatin Calcium 1 Tablet (of 20 mg) Oral at bedtime, Clopidogrel Bisulfate 1 Tablet (of 75 mg) Oral daily, Ferrous Sulfate 1 Tablet (of 325 (65 fe) mg) Oral daily, Finasteride 1 Tablet (of 5 mg) Oral at bedtime, Metoprolol Tartrate 1 Tablet (of 25 mg) Oral daily, Multivitamin Adult 1 Tablet Oral daily, Pantoprazole Sodium 1 Tablet (of 40 mg) Tablet, enteric coated Oral b.i.d. Allergies: Aspirin, HYDROcodone-Acetaminophen, Penicillins, and Sulfa Antibiotics. Review of Systems: Review of Systems is not available for this patient. Vital Signs: Performed on Jul 06, 2020 08:44 Height - 71.00 in Weight - 201.4 lbs (HIGH) BSA - 2.12 sq.m BMI - 28.09 Temperature - 97.8 F (LOW) Pulse - 53 /min (LOW) Respiration - 18 /min BP - 131/77 mm(hg) O2 Sat - 98 % Pain - 3 Fatigue - 4 Performance Status: 0 - Fully active, able to carry on all predisease activities without restrictions. (ECOG) Physical Examination: ENMT - No mouth sores, no thrush, no jaundice, Respiratory - Lungs are clear to auscultation, Cardiovascular - Regular rate and rhythm of heart, Abdomen - Soft, bowel sounds present, Extremities - No visible edema. Lab/Imaging: Test performed on Apr 24, 2020 09:23 Sodium 138 mmol/L Potassium 3.9 mmol/L Chloride 104 mmol/L CO2 26 mmol/L Anion Gap 11.9 BUN 15 mg/dL Creatinine 0.9 mg/dL Cr Clearance (Est) 96.89 mL/min Glucose 93 mg/dL Osmolality - Calculated 287 mOsm/kg Calcium 9.6 mg/dL Protein, Total 7.1 g/dL Albumin 4.1 g/dL Globulin 3.0 g/dL Bilirubin, Total 0.6 mg/dL ALT (SGPT) 26 U/L AST (SGOT) 21 U/L Alkaline Phosphatase 93 IU/L WBC 6.9 10 3/uL RBC 5.35 10 6/uL HGB 15.1 g/dL HCT 46.3 % MCV 86.5 fL MCH 28.2 pg MCHC 32.6 g/dL RDW 12.4 % Platelet Count 222 10 3/cmm MPV 9.9 fL Neutrophils 3.85 10 3/uL Lymphocytes 2.3 10 3/uL Monocytes 0.5 10 3/uL Eosinophils 0.1 10 3/uL Basophils 0.0 10 3/uL Neutrophil % 56.2 % Lymphocyte % 33.9 % Monocyte % 7.4 % Eosinophil % 1.8 % Basophils % 0.6 % NRBC % 0 % Impression: History of colorectal cancer status post low anterior resection for 2 cm invasive tumor that was barely into submucosa T1,, 2 lymph nodes were identified and examined showed no evidence of disease ,N0 as per medical record, diagnosed in February 2018 had been followed by medical oncologist Dr. Denny jarrett on 3 monthly basis with CEA/LFTs and CT PET scans next Last PET scan done on 03/22/2019 showed right hilar and upper lobe FDG positive lesions, patient underwent right upper lobe excisional biopsy which showed sarcoidosis Follow-up CT scan of chest done on 06/13/2019 showed spontaneous resolution of right hilar abnormalities and postsurgical scar. Now being followed by pulmonology. Follow-up colonoscopy done on July 01, 2020 showed no evidence of recurrence patent end-to-end colocolonic anastomosis,polyp in the cecum was removed, also noted diverticulosis in the descending colon. CT scan of abdomen pelvis done on July 03, 2020 showed no evidence of recurrence of disease Plan: Discussed with patient regarding his labs white blood count 10.5 hemoglobin 14.6 hematocrit 45.2 platelets 231,000 CMP within normal limits and regarding his follow-up CT scan of abdomen pelvis and colonoscopy both showed no evidence of recurrence of disease Clinically, patient doing well with no new signs symptom except off and on left lower quadrant discomfort which could be due to BPH, for which she is being followed by urologist or referred pain from lower back patient has history of degenerative joint disease involving spine, his PMD is managing it, his follow-up CT scan of abdomen pelvis and colonoscopy showed no evidence of recurrence of disease, will continue to monitor and he will return to clinic in 6 months with CBC CMP and CEA Signed By: Malaika Cornell M.D. <<Signature on File>>
== END 2020-07-06 05:36 | disposition home or self-care (01) ==
LOC: ONCMED 05:37
PROVIDERS: PCP Family Medicine; Visit Provider Internal Medicine Hematology & Oncology
DX: Z08 Encounter for follow-up examination after completed treatment for malignant neoplasm (principal); Z85.038 Personal history of other malignant neoplasm of large intestine; R10.32 Left lower quadrant pain; D86.0 Sarcoidosis of lung; N40.0 Benign prostatic hyperplasia without lower urinary tract symptoms; Z90.49 Acquired absence of other specified parts of digestive tract; Z98.0 Intestinal bypass and anastomosis status
CPT/HCPCS: 99214

== ENCOUNTER 2020-10-19 14:09 | Outpatient (CLI) | payer MEDICARE, SELFPAY ==
--- NOTE | 2020-10-19 17:27 | ONC FU_ITS ---
Dr. Cornell follow up note Patient: Henry Blackwell Unit #: [id number]: 1950 Dicatated By: Malaika Cornell M.D.Date of Visit:Oct 19, 2020 Onc Med Follow-up/Prog Note History of Present Illness: Mr. Henry Blackwell , is a 70-year-old gentleman with a history of adenocarcinoma of the rectum which was diagnosed on 02/05/2018 when he underwent colonoscopy exam for history of hematochezia and abdominal pain. As far pathology report adenocarcinoma seen in rectal polyp biopsy whereas transverse colon polyp showed sessile serrated adenoma. CT PET scan done on 02/14/2018 showed very intense area approximately 2 cm in diameter that is high in the rectum consistent with rectal carcinoma and no other abnormality seen subsequently as per Dr. Denny Howell's note, patient underwent low anterior resection and final pathology report showed 2 cm colorectal cancer that was barely into submucosa e.g. T1, N0 lesion only 2 lymph nodes were identified in the specimen. Patient was seen by Dr. Denny howell, medical oncologist who recommended observation alone and had been followed by him on 3 monthly basis and last visit was in March 2019, labs done on 02/22/2019's his CEA was 0.7 and hemoglobin was 13.4 marker 41.9 and [address] his last [address] PET scan done on 03/22/2019 showed enlarging mass in the right upper lobe abutting the mediastinum with increase in metabolic activity size up to 3.2 cm and an additional mass which has developed in the right lung apex abutting pleural margin in the apex with increase metabolic activity SUV of 6 as per patient he was referred to surgeon and underwent excisional biopsy of right upper lobe lung mass and 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 He has seen engine room helper there in [place], and later on decided to switch his care to Dr. See in [place] who repeated CT scan of chest on 06/13/2019 which when compared with CT PET scan done on 03/22/2019 showed previously described nodule in the right upper lobe are no longer present and postsurgical changes now seen in the right upper lobe. Stable mediastinal and hilar lymph nodes with no significant adenopathy. As per Dr. 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 Patient denies any melena or hematochezia, denies any abdominal pain, denies any weight loss, denies any jaundice. Patient said during his last visit with Dr. Denny howell in March 2019, his lab workup did not show any evidence of malignancy but PET scan done in March 2019 showed abnormality in the right lung and there was a concern but malignancy, which was later on confirmed as sarcoidosis and now with spontaneous resolution. Follow-up chest x-ray done on September 04, [address] See showed postop changes right upper lung with no recurrent masses seenFollow-up CT scan of her abdomen pelvis done on July 05, 2020 shows negative for acute intra-abdominal or pelvic abnormality negative for metastatic disease or recurrence of disease underwent colonoscopy on July 01, 2020 shows 5 mm polyps in the rectum removed, benign patent end-to-end colocolonic anastomosis with healthy-appearing mucosa. Diverticulosis in descending colon. Came for follow-up, denies any specific complaints, no fever chills, no nausea or vomiting, no diarrhea or constipation, no abdominal pain, no melena or hematochezia, since his last visit, patient underwent fusion targeted biopsy of prostate on September 16, 2020 and his pathology confirmed 3+4 Raleigh score 7 and 5 out of 15 cores were positive for malignancy in left lateral apex/mid and base., As per patient he has seen surgeon and radiation oncology and now leaning towards radiotherapy but still exploring other options like cryosurgery. Medications: Albuterol Sulfate (sensor) 1 Inhalation (of 108 (90 base) mcg/act) Aerosol Powder, Breath Activated Inhalation four times a day PRN, Atorvastatin Calcium 1 Tablet (of 20 mg) Oral at bedtime, Clopidogrel Bisulfate 1 Tablet (of 75 mg) Oral daily, Ferrous Sulfate 1 Tablet (of 325 (65 fe) mg) Oral daily, Finasteride 1 Tablet (of 5 mg) Oral at bedtime, Metoprolol Tartrate 1 Tablet (of 25 mg) Oral daily, Multivitamin Adult 1 Tablet Oral daily, Pantoprazole Sodium 1 Tablet (of 40 mg) Tablet, enteric coated Oral b.i.d. Allergies: Aspirin, HYDROcodone-Acetaminophen, Penicillins, and Sulfa Antibiotics. Review of Systems: Review of Systems is not available for this patient. Vital Signs: Performed on Oct 19, 2020 16:29 Height - 71.00 in Weight - 203.4 lbs (HIGH) BSA - 2.12 sq.m BMI - 28.37 Temperature - 97.6 F (LOW) Pulse - 59 /min (LOW) Respiration - 18 /min BP - 117/70 mm(hg) O2 Sat - 97 % Pain - 0 Fatigue - 0 Performance Status: 0 - Fully active, able to carry on all predisease activities without restrictions. (ECOG) Physical Examination: ENMT - No mouth sores, no thrush, no jaundice, Respiratory - Lungs are clear to auscultation, Cardiovascular - Regular rate and rhythm of heart, Abdomen - Soft, bowel sounds present, Extremities - No visible edema. Lab/Imaging: Test performed on Apr 24, 2020 09:23 Sodium 138 mmol/L Potassium 3.9 mmol/L Chloride 104 mmol/L CO2 26 mmol/L Anion Gap 11.9 BUN 15 mg/dL Creatinine 0.9 mg/dL Cr Clearance (Est) 96.89 mL/min Glucose 93 mg/dL Osmolality - Calculated 287 mOsm/kg Calcium 9.6 mg/dL Protein, Total 7.1 g/dL Albumin 4.1 g/dL Globulin 3.0 g/dL Bilirubin, Total 0.6 mg/dL ALT (SGPT) 26 U/L AST (SGOT) 21 U/L Alkaline Phosphatase 93 IU/L WBC 6.9 10 3/uL RBC 5.35 10 6/uL HGB 15.1 g/dL HCT 46.3 % MCV 86.5 fL MCH 28.2 pg MCHC 32.6 g/dL RDW 12.4 % Platelet Count 222 10 3/cmm MPV 9.9 fL Neutrophils 3.85 10 3/uL Lymphocytes 2.3 10 3/uL Monocytes 0.5 10 3/uL Eosinophils 0.1 10 3/uL Basophils 0.0 10 3/uL Neutrophil % 56.2 % Lymphocyte % 33.9 % Monocyte % 7.4 % Eosinophil % 1.8 % Basophils % 0.6 % NRBC % 0 % Impression: History of colorectal cancer status post low anterior resection for 2 cm invasive tumor that was barely into submucosa T1,, 2 lymph nodes were identified and examined showed no evidence of disease ,N0 as per medical record, diagnosed in February 2018 had been followed by medical oncologist Dr. Denny jarrett on 3 monthly basis with CEA/LFTs and CT PET scans next Last PET scan done on 03/22/2019 showed right hilar and upper lobe FDG positive lesions, patient underwent right upper lobe excisional biopsy which showed sarcoidosis Follow-up CT scan of chest done on 06/13/2019 showed spontaneous resolution of right hilar abnormalities and postsurgical scar. Now being followed by pulmonology. Follow-up colonoscopy done on July 01, 2020 showed no evidence of recurrence patent end-to-end colocolonic anastomosis,polyp in the cecum was removed, also noted diverticulosis in the descending colon. CT scan of abdomen pelvis done on July 03, 2020 showed no evidence of recurrence of disease Plan: Discussed with patient regarding his newly diagnosed prostate cancer, clinically, patient is a low risk early stage prostate cancer discussed about options including observation and his pros and cons or radiation therapy/brachytherapy or surgery, patient has already seen radiation oncology as well as surgery and now exploring other options like cryosurgery. As per patient he did discuss with Dr. Gamez, his urologist who offered him observation versus robotic assisted surgery versus radiation therapy/brachytherapy versus cryosurgery., Considering low risk/low volume/low-grade tumor, patient is not a candidate for ADT considering related side effect and toxicity At this point , patient was advised that there is no one who does cryosurgery in [place], may be in [place] but the best option would be at [place], if he wants to explore cryosurgery option. Patient said he will discuss with Dr. Gamez his urologist and decide Patient return to clinic in 6 months with CBC CMP and CEA and PSA Signed By: Malaika Cornell M.D. <<Signature on File>>
== END 2020-10-19 14:10 | disposition home or self-care (01) ==
LOC: ONCMED 14:13
PROVIDERS: PCP Family Medicine; Visit Provider Internal Medicine Hematology & Oncology
DX: C61 Malignant neoplasm of prostate (principal); Z85.038 Personal history of other malignant neoplasm of large intestine; D86.9 Sarcoidosis, unspecified; K57.30 Diverticulosis of large intestine without perforation or abscess without bleeding
CPT/HCPCS: 99214

== ENCOUNTER 2021-06-01 10:42 | Outpatient (CLI) | payer MEDICARE, SELFPAY ==
[2021-06-01 11:41] LABS: Basophils % 0.3 %; Eosinophils # 0.1 10^3/uL (0.0-0.8); Eosinophils % 1.6 %; Hematocrit 42.5 % (42.0-52.0); Lymphocytes # 1.3 10^3/uL (0.8-4.8); Lymphocytes % 23.4 %; Mean Corpuscular HGB Conc 32.9 g/dL (30.0-36.0); Mean Corpuscular Hemoglobin 28.5 pg (28.0-34.0); Mean Corpuscular Volume 86.6 fl (80-94); Monocytes # 0.5 10^3/uL (0.2-0.9); Monocytes % 8.9 %; Neutrophils # 3.75 10^3/uL (1.8-7.7); Neutrophils % 65.6 %; Nucleated Red Blood Cells % 0 %; Platelet Count 201 10^3/cmm (130-400); Red Blood Count 4.91 10^6/uL (4.1-5.3); Red Cell Distribution Width 13.2 % (12.1-15.1); White Blood Count 5.7 10^3/uL (4.0-10.0)
[2021-06-01 12:17] LABS: Carcinoembryonic Antigen 1.9 ng/mL (0.0-4.7)
[2021-06-01 12:28] LABS: Alanine Aminotransferase 37 U/L (0-41); Albumin Level 4.2 g/dL (3.5-5.2); Alkaline Phosphatase 87 IU/L (40-130); Aspartate Amino Transferase 28 U/L (0-40); Blood Urea Nitrogen 19 mg/dL (8-23); Calcium 8.9 mg/dL (8.5-10.5); Carbon Dioxide 24 mmol/L (22-29); Chloride 107 mmol/L (98-107); Globulin 2.7 g/dL (1.3-4.6); Glucose 126 mg/dL (65-115); Osmolality Calculated 294 mOsm/kg (285-295); Sodium 140 mmol/L (136-145); Total Bilirubin 0.4 mg/dL (0.15-1.2); Total Protein 6.9 g/dL (6.6-8.7)
--- NOTE | 2021-06-02 17:03 | ONC FU_ITS ---
Dr. Cornell follow up note Patient: Henry Blackwell Unit #: [id number]: 1950 Dicatated By: Malaika Cornell M.D.Date of Visit:Jun 01, 2021 Onc Med Follow-up/Prog Note History of Present Illness: Mr. Henry Blackwell , is a 71-year-old gentleman with a history of adenocarcinoma of the rectum which was diagnosed on 02/05/2018 when he underwent colonoscopy exam for history of hematochezia and abdominal pain. As far pathology report adenocarcinoma seen in rectal polyp biopsy whereas transverse colon polyp showed sessile serrated adenoma. CT PET scan done on 02/14/2018 showed very intense area approximately 2 cm in diameter that is high in the rectum consistent with rectal carcinoma and no other abnormality seen subsequently as per Dr. Denny Howell's note, patient underwent low anterior resection and final pathology report showed 2 cm colorectal cancer that was barely into submucosa e.g. T1, N0 lesion only 2 lymph nodes were identified in the specimen. Patient was seen by Dr. Denny howell, medical oncologist who recommended observation alone and had been followed by him on 3 monthly basis and last visit was in March 2019, labs done on 02/22/2019's his CEA was 0.7 and hemoglobin was 13.4 marker 41.9 [address] his [address] PET scan done on 03/22/2019 showed enlarging mass in the right upper lobe abutting the mediastinum with increase in metabolic activity size up to 3.2 cm and an additional mass which has developed in the right lung apex abutting pleural margin in the apex with increase metabolic activity SUV of 6 as per patient he was referred to surgeon and underwent excisional biopsy of right upper lobe lung mass and 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 He has seen printed circuit board panels trimmer there in [place], and later on decided to switch his care to Dr. See in [place] who repeated CT scan of chest on 06/13/2019 which when compared with CT PET scan done on 03/22/2019 showed previously described nodule in the right upper lobe are no longer present and postsurgical changes now seen in the right upper lobe. Stable mediastinal and hilar lymph nodes with no significant adenopathy. As per Dr. 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 Patient denies any melena or hematochezia, denies any abdominal pain, denies any weight loss, denies any jaundice. Patient said during his last visit with Dr. Denny howell in March 2019, his lab workup did not show any evidence of malignancy but PET scan done in March 2019 showed abnormality in the right lung and there was a concern but malignancy, which was later on confirmed as sarcoidosis and now with spontaneous resolution. Follow-up chest x-ray done on September 04, [address] See showed postop changes right upper lung with no recurrent masses seenFollow-up CT scan of her abdomen pelvis done on July 05, 2020 shows negative for acute intra-abdominal or pelvic abnormality negative for metastatic disease or recurrence of disease underwent colonoscopy on July 01, 2020 shows 5 mm polyps in the rectum removed, benign patent end-to-end colocolonic anastomosis with healthy-appearing mucosa. Diverticulosis in descending colon. Came for follow-up, denies any specific complaints, no fever chills, no nausea or vomiting, no diarrhea constipation, no dysuria or hematuria, as per patient his urologist referred him to local radiation oncologist at [facility] in [facility] for evaluation for radiation therapy and currently he is undergoing radiation therapy to his prostate gland so far has received 29 doses of 43 recommended. As per patient, being low risk, only radiotherapy was recommended and planned. Medications: Albuterol Sulfate (sensor) 1 Inhalation (of 108 (90 base) mcg/act) Aerosol Powder, Breath Activated Inhalation four times a day PRN, Atorvastatin Calcium 1 Tablet (of 20 mg) Oral at bedtime, Clopidogrel Bisulfate 1 Tablet (of 75 mg) Oral daily, Ferrous Sulfate 1 Tablet (of 325 (65 fe) mg) Oral daily, Finasteride 1 Tablet (of 5 mg) Oral at bedtime, Metoprolol Tartrate 1 Tablet (of 25 mg) Oral daily, Multivitamin Adult 1 Tablet Oral daily, Pantoprazole Sodium 1 Tablet (of 40 mg) Tablet, enteric coated Oral b.i.d. Allergies: Aspirin, HYDROcodone-Acetaminophen, Penicillins, and Sulfa Antibiotics. Review of Systems: Review of Systems is not available for this patient. Vital Signs: Performed on Jun 01, 2021 12:33 Height - 71.00 in Weight - 197.6 lbs (LOW) BSA - 2.10 sq.m BMI - 27.56 Temperature - 97.6 F (LOW) Pulse - 79 /min Respiration - 18 /min BP - 129/78 mm(hg) O2 Sat - 99 % Pain - 4 Fatigue - 7 Performance Status: 0 - Fully active, able to carry on all predisease activities without restrictions. (ECOG) Physical Examination: ENMT - No mouth sores, no thrush, no jaundice, Respiratory - Lungs are clear to auscultation, Cardiovascular - Regular rate and rhythm of heart, Abdomen - Soft, bowel sounds present, Extremities - No visible edema. Lab/Imaging: Most recent lab results are not available for this patient. Impression: History of colorectal cancer status post low anterior resection for 2 cm invasive tumor that was barely into submucosa T1,, 2 lymph nodes were identified and examined showed no evidence of disease ,N0 as per medical record, diagnosed in February 2018 had been followed by medical oncologist Dr. Denny Howell on 3 monthly basis with CEA/LFTs and CT PET scans next Last PET scan done on 03/22/2019 showed right hilar and upper lobe FDG positive lesions, patient underwent right upper lobe excisional biopsy which showed sarcoidosis Follow-up CT scan of chest done on 06/13/2019 showed spontaneous resolution of right hilar abnormalities and postsurgical scar. Now being followed by pulmonology. Follow-up colonoscopy done on July 01, 2020 showed no evidence of recurrence patent end-to-end colocolonic anastomosis,polyp in the cecum was removed, also noted diverticulosis in the descending colon. CT scan of abdomen pelvis done on July 03, 2020 showed no evidence of recurrence of disease Plan: Discussed with patient regarding his labs white blood count 5.7 hemoglobin 14 hematocrit 42.5 platelets 201,000 CMP within normal limits PSA 2.9 and CEA 1.9 Clinically, patient is doing well with no new signs symptom suggestive of disease progression, now being treated with radiation therapy for his history of low risk, localized prostate cancer., Tolerating well. At this point, no further recommendation from medical oncology point of view, he will continue to follow with his urology regarding his prostate cancer and with Dr. Denny Howell regarding his colon cancer., Will see him on as-needed basis Signed By: Malaika Cornell M.D. <<Signature on File>>
== END 2021-06-01 10:43 | disposition home or self-care (01) ==
LOC: ONCMED 10:48
PROVIDERS: PCP Family Medicine; Visit Provider Internal Medicine Hematology & Oncology
DX: C61 Malignant neoplasm of prostate (principal); C20 Malignant neoplasm of rectum; K57.90 Diverticulosis of intestine, part unspecified, without perforation or abscess without bleeding; Z79.899 Other long term (current) drug therapy
CPT/HCPCS: 36415; 80053; 82378; 84153; 85025; 99214

== ENCOUNTER → 2021-07-23 09:26 | Outpatient (BNVA) | payer MEDICARE, SELFPAY | PROVIDERS: PCP Family Medicine; Visit Provider Internal Medicine Critical Care Medicine | DX: D86.0 Sarcoidosis of lung (principal); G47.33 Obstructive sleep apnea (adult) (pediatric); R06.02 Shortness of breath; Z87.891 Personal history of nicotine dependence; K21.9 Gastro-esophageal reflux disease without esophagitis; E78.5 Hyperlipidemia, unspecified | CPT/HCPCS: 71046; 99214 ==

== ENCOUNTER → 2022-06-06 08:33 | Outpatient (BNVA) | payer MEDICARE, SELFPAY | PROVIDERS: PCP Family Medicine; Visit Provider Internal Medicine Pulmonary Disease | DX: G47.33 Obstructive sleep apnea (adult) (pediatric) (principal); R06.02 Shortness of breath; D86.0 Sarcoidosis of lung; K44.9 Diaphragmatic hernia without obstruction or gangrene; Z87.891 Personal history of nicotine dependence | CPT/HCPCS: 99214 ==

== ENCOUNTER 2022-06-29 09:15 | Outpatient (CLI) | payer MEDICARE, SELFPAY ==
[2022-06-29 09:55] VITALS: BP 121/82; BP 130/87
== END 2022-06-29 09:16 | disposition home or self-care (01) ==
LOC: RT 09:23
PROVIDERS: PCP Family Medicine; Visit Provider Internal Medicine Pulmonary Disease
DX: D86.0 Sarcoidosis of lung (principal)
CPT/HCPCS: 94010; 94618; 94726; 94729

== ENCOUNTER → 2022-08-10 10:03 | Outpatient (BNVA) | payer MEDICARE, SELFPAY | PROVIDERS: PCP Family Medicine; Visit Provider Internal Medicine Pulmonary Disease | DX: R06.02 Shortness of breath (principal); T78.40XA Allergy, unspecified, initial encounter | CPT/HCPCS: 36415; 82785; 85025; 86003; 99214 ==

== ENCOUNTER 2022-08-31 14:00 | Outpatient (CLI) | payer MEDICARE, SELFPAY | END 2022-08-31 14:01 | disposition home or self-care (01) | LOC: SLEEP 09-05 14:37 | PROVIDERS: PCP Family Medicine; Visit Provider Internal Medicine Pulmonary Disease | DX: G47.33 Obstructive sleep apnea (adult) (pediatric) (principal) | CPT/HCPCS: 94762 ==

== ENCOUNTER → 2023-02-16 09:05 | Outpatient (BNVA) | payer MEDICARE, SELFPAY | PROVIDERS: PCP Family Medicine; Visit Provider Internal Medicine Pulmonary Disease | DX: G47.33 Obstructive sleep apnea (adult) (pediatric) (principal); R06.02 Shortness of breath; D86.0 Sarcoidosis of lung; K44.9 Diaphragmatic hernia without obstruction or gangrene; J82.83 Eosinophilic asthma; Z87.891 Personal history of nicotine dependence; Z91.199 Patient's noncompliance with other medical treatment and regimen due to unspecified reason | CPT/HCPCS: 99214 ==

== ENCOUNTER 2023-06-15 10:10 | Oncology outpatient (recurring) (ONCR) | payer MEDICARE, SELFPAY ==
[2023-06-15 11:09] LABS: Basophils # 0.1 10^3/uL (0.0-0.1); Basophils % 0.7 %; Eosinophils # 0.1 10^3/uL (0.0-0.8); Eosinophils % 1.6 %; Hematocrit 41.3 % (37-53); Lymphocytes # 1.6 10^3/uL (0.8-4.8); Lymphocytes % 22.5 %; Mean Corpuscular HGB Conc 34.1 g/dL (30-55); Mean Corpuscular Hemoglobin 28.8 pg (27-33); Mean Corpuscular Volume 84.5 fl (82-101); Mean Platelet Volume 9.6 fL (7.4-10.4); Monocytes # 0.6 10^3/uL (0.2-0.9); Monocytes % 8.8 %; Neutrophils # 4.83 10^3/uL (1.8-7.7); Neutrophils % 66.1 %; Nucleated Red Blood Cells % 0 %; Platelet Count 226 10^3/cmm (157-399); Red Blood Count 4.89 10^6/uL (3.85-5.65); Red Cell Distribution Width 12.9 % (12.1-15.1)
[2023-06-15 11:41] LABS: Carcinoembryonic Antigen 1.8 ng/mL (0.0-4.7); Prostate Specific Antigen 0.473 ng/mL (0-4); Testosterone Total 477.8 ng/dL (193-740)
[2023-06-15 11:52] LABS: Alanine Aminotransferase 15 U/L (0-41); Albumin Level 3.8 g/dL (3.5-5.2); Alkaline Phosphatase 91 U/L (40-130); Anion Gap 15.2 (5-19); Aspartate Amino Transferase 20 U/L (0-40); Blood Urea Nitrogen 15 mg/dL (8-23); Calcium 9.3 mg/dL (8.5-10.5); Carbon Dioxide 24 mmol/L (22-29); Chloride 105 mmol/L (98-107); Creatinine Clr Calc Pharmacy 79.9073; Globulin 3.3 g/dL (1.3-4.6); Glucose 93 mg/dL (65-115); Lactate Dehydrogenase 187 U/L (135-225); Osmolality Calculated 291 mOsm/kg (285-295); Potassium 4.2 mmol/L (3.5-5.1); Sodium 140 mmol/L (136-145); Total Bilirubin 0.4 mg/dL (0.15-1.2); Total Protein 7.1 g/dL (6.6-8.7)
== END 2023-07-02 23:59 | disposition home or self-care (01) ==
PROVIDERS: PCP Family Medicine; Visit Provider Internal Medicine
DX: C61 Malignant neoplasm of prostate; Z85.048 Personal history of other malignant neoplasm of rectum, rectosigmoid junction, and anus; Z92.3 Personal history of irradiation; R10.13 Epigastric pain
CPT/HCPCS: 36415; 80053; 82378; 83615; 84153; 84403; 85025; 99215

== ENCOUNTER → 2023-08-17 09:57 | Outpatient (BNVA) | payer MEDICARE, SELFPAY | PROVIDERS: PCP Family Medicine; Visit Provider Internal Medicine Pulmonary Disease | DX: D86.9 Sarcoidosis, unspecified (principal); G47.33 Obstructive sleep apnea (adult) (pediatric); R06.02 Shortness of breath; D86.0 Sarcoidosis of lung; K44.9 Diaphragmatic hernia without obstruction or gangrene; J82.83 Eosinophilic asthma; Z87.891 Personal history of nicotine dependence | CPT/HCPCS: 99214 ==

== ENCOUNTER 2023-10-18 12:11 | Oncology outpatient (recurring) (ONCR) | payer MEDICARE, SELFPAY ==
[2023-10-18 12:29] VITALS: BP 107/68; PULSE 77; RESP 17; TEMP 36.6; O2SAT 98
[2023-10-18 12:34] LABS: Basophils % 0.6 %; Eosinophils # 0.1 10^3/uL (0.0-0.8); Eosinophils % 1.4 %; Lymphocytes # 1.5 10^3/uL (0.8-4.8); Lymphocytes % 23.4 %; Mean Corpuscular HGB Conc 33.1 g/dL (30-55); Mean Corpuscular Hemoglobin 28.4 pg (27-33); Mean Corpuscular Volume 85.9 fl (82-101); Mean Platelet Volume 10.1 fL (7.4-10.4); Monocytes # 0.5 10^3/uL (0.2-0.9); Monocytes % 6.9 %; Neutrophils # 4.43 10^3/uL (1.8-7.7); Neutrophils % 67.5 %; Nucleated Red Blood Cells % 0 %; Platelet Count 194 10^3/cmm (157-399); Red Blood Count 4.89 10^6/uL (3.85-5.65); Red Cell Distribution Width 13.3 % (12.1-15.1); White Blood Count 6.55 10^3/uL (3.29-11.43)
[2023-10-18 12:59] LABS: Carcinoembryonic Antigen 1.9 ng/mL (0.0-4.7); Prostate Specific Antigen 0.617 ng/mL (0-4); Testosterone Total 415.7 ng/dL (193-740)
[2023-10-18 13:10] LABS: Alanine Aminotransferase 18 U/L (0-41); Albumin Level 3.8 g/dL (3.5-5.2); Alkaline Phosphatase 80 U/L (40-130); Anion Gap 17.1 (5-19); Aspartate Amino Transferase 19 U/L (0-40); Blood Urea Nitrogen 22 mg/dL (8-23); Calcium 9.1 mg/dL (8.5-10.5); Carbon Dioxide 20 mmol/L (22-29); Chloride 107 mmol/L (98-107); Creatinine Clr Calc Pharmacy 77.1353; Globulin 2.7 g/dL (1.3-4.6); Glucose 120 mg/dL (65-115); Osmolality Calculated 295 mOsm/kg (285-295); Potassium 4.1 mmol/L (3.5-5.1); Sodium 140 mmol/L (136-145); Total Bilirubin 0.3 mg/dL (0.15-1.2); Total Protein 6.5 g/dL (6.6-8.7)
== END 2023-11-01 23:59 | disposition home or self-care (01) ==
PROVIDERS: PCP Family Medicine; Visit Provider Internal Medicine
DX: Z87.891 Personal history of nicotine dependence; Z92.3 Personal history of irradiation; Z85.030 Personal history of malignant carcinoid tumor of large intestine; Z85.46 Personal history of malignant neoplasm of prostate
CPT/HCPCS: 36415; 80053; 82378; 84153; 84403; 85025; 99214

== ENCOUNTER 2023-11-22 12:16 | Oncology outpatient (recurring) (ONCR) | payer MEDICARE, SELFPAY ==
[2023-11-22 13:00] LABS: Basophils % 0.4 %; Eosinophils # 0.1 10^3/uL (0.0-0.8); Eosinophils % 1.5 %; Hematocrit 41.5 % (37-53); Lymphocytes # 1.8 10^3/uL (0.8-4.8); Lymphocytes % 25.2 %; Mean Corpuscular HGB Conc 33.5 g/dL (30-55); Mean Corpuscular Hemoglobin 29.3 pg (27-33); Mean Corpuscular Volume 87.4 fl (82-101); Mean Platelet Volume 9.8 fL (7.4-10.4); Monocytes # 0.6 10^3/uL (0.2-0.9); Monocytes % 7.7 %; Neutrophils % 64.9 %; Nucleated Red Blood Cells % 0 %; Platelet Count 179 10^3/cmm (157-399); Red Blood Count 4.75 10^6/uL (3.85-5.65); Red Cell Distribution Width 12.7 % (12.1-15.1); White Blood Count 7.25 10^3/uL (3.29-11.43)
[2023-11-22 13:25] LABS: Alanine Aminotransferase 18 U/L (0-41); Albumin Level 3.8 g/dL (3.5-5.2); Alkaline Phosphatase 77 U/L (40-130); Anion Gap 14.3 (5-19); Aspartate Amino Transferase 22 U/L (0-40); Blood Urea Nitrogen 21 mg/dL (8-23); Calcium 9.1 mg/dL (8.5-10.5); Carbon Dioxide 22 mmol/L (22-29); Chloride 109 mmol/L (98-107); Globulin 2.8 g/dL (1.3-4.6); Glucose 97 mg/dL (65-115); Osmolality Calculated 295 mOsm/kg (285-295); Potassium 4.3 mmol/L (3.5-5.1); Sodium 141 mmol/L (136-145); Total Bilirubin 0.5 mg/dL (0.15-1.2); Total Protein 6.6 g/dL (6.6-8.7)
== END 2023-12-02 23:55 | disposition home or self-care (01) ==
PROVIDERS: Nurse Practitioner Family; PCP Family Medicine; Visit Provider Internal Medicine
DX: Z85.030 Personal history of malignant carcinoid tumor of large intestine (principal); Z85.46 Personal history of malignant neoplasm of prostate; Z87.891 Personal history of nicotine dependence; Z92.3 Personal history of irradiation; C20 Malignant neoplasm of rectum; C61 Malignant neoplasm of prostate
CPT/HCPCS: 36415; 80053; 85025; 99214

== ENCOUNTER 2024-03-19 12:50 | Oncology outpatient (recurring) (ONCR) | payer MEDICARE, SELFPAY ==
[2024-03-19 13:25] LABS: Basophils % 0.6 %; Eosinophils # 0.1 10^3/uL (0.0-0.8); Eosinophils % 1.3 %; Hematocrit 42.2 % (37-53); Lymphocytes # 1.8 10^3/uL (0.8-4.8); Lymphocytes % 26.5 %; Mean Corpuscular HGB Conc 33.4 g/dL (30-55); Mean Corpuscular Hemoglobin 28.3 pg (27-33); Mean Corpuscular Volume 84.7 fl (82-101); Mean Platelet Volume 9.7 fL (7.4-10.4); Monocytes # 0.5 10^3/uL (0.2-0.9); Monocytes % 7.4 %; Neutrophils # 4.42 10^3/uL (1.8-7.7); Neutrophils % 64.1 %; Nucleated Red Blood Cells % 0 %; Platelet Count 200 10^3/cmm (157-399); Red Blood Count 4.98 10^6/uL (3.85-5.65); Red Cell Distribution Width 12.5 % (12.1-15.1)
[2024-03-19 13:52] LABS: Carcinoembryonic Antigen 1.9 ng/mL (0.0-4.7); Prostate Specific Antigen 0.738 ng/mL (0-4); Testosterone Total 557.8 ng/dL (193-740)
[2024-03-19 14:03] LABS: Alanine Aminotransferase 19 U/L (0-41); Albumin Level 3.9 g/dL (3.5-5.2); Alkaline Phosphatase 83 U/L (40-130); Anion Gap 15.3 (5-19); Aspartate Amino Transferase 22 U/L (0-40); Blood Urea Nitrogen 18 mg/dL (8-23); Calcium 9.5 mg/dL (8.5-10.5); Carbon Dioxide 22 mmol/L (22-29); Chloride 107 mmol/L (98-107); Globulin 2.5 g/dL (1.3-4.6); Glucose 108 mg/dL (65-115); Osmolality Calculated 292 mOsm/kg (285-295); Potassium 4.3 mmol/L (3.5-5.1); Sodium 140 mmol/L (136-145); Total Bilirubin 0.4 mg/dL (0.15-1.2); Total Protein 6.4 g/dL (6.6-8.7)
== END 2024-04-02 23:59 | disposition home or self-care (01) ==
PROVIDERS: Nurse Practitioner Family; PCP Family Medicine; Visit Provider Internal Medicine Medical Oncology
DX: C61 Malignant neoplasm of prostate; Z87.891 Personal history of nicotine dependence; Z92.3 Personal history of irradiation; Z85.048 Personal history of other malignant neoplasm of rectum, rectosigmoid junction, and anus
CPT/HCPCS: 36415; 80053; 82378; 84153; 84403; 85025; 99214

== ENCOUNTER 2024-06-17 11:57 | Oncology outpatient (recurring) (ONCR) | payer MEDICARE, SELFPAY ==
[2024-06-17 12:58] LABS: Basophils % 0.4 %; Eosinophils # 0.1 10^3/uL (0.0-0.8); Eosinophils % 1.6 %; Hematocrit 41.2 % (37-53); Lymphocytes % 29.6 %; Mean Corpuscular HGB Conc 32.5 g/dL (30-55); Mean Corpuscular Hemoglobin 28.2 pg (27-33); Mean Corpuscular Volume 86.6 fl (82-101); Mean Platelet Volume 9.7 fL (7.4-10.4); Monocytes # 0.7 10^3/uL (0.2-0.9); Monocytes % 9.9 %; Neutrophils % 58.2 %; Nucleated Red Blood Cells % 0 %; Platelet Count 190 10^3/cmm (157-399); Red Blood Count 4.76 10^6/uL (3.85-5.65)
[2024-06-17 13:38] LABS: Carcinoembryonic Antigen 2.1 ng/mL (0.0-4.7); Prostate Specific Antigen 0.787 ng/mL (0-4); Testosterone Total 538.4 ng/dL (193-740)
[2024-06-17 13:49] LABS: Alanine Aminotransferase 20 U/L (0-41); Albumin Level 3.8 g/dL (3.5-5.2); Alkaline Phosphatase 83 U/L (40-130); Aspartate Amino Transferase 21 U/L (0-40); Blood Urea Nitrogen 16 mg/dL (8-23); Calcium 9.2 mg/dL (8.5-10.5); Carbon Dioxide 22 mmol/L (22-29); Chloride 107 mmol/L (98-107); Globulin 2.8 g/dL (1.3-4.6); Glucose 71 mg/dL (65-115); Osmolality Calculated 288 mOsm/kg (285-295); Sodium 139 mmol/L (136-145); Total Bilirubin 0.5 mg/dL (0.15-1.2); Total Protein 6.6 g/dL (6.6-8.7)
== END 2024-07-01 23:59 | disposition home or self-care (01) ==
PROVIDERS: Nurse Practitioner Family; PCP Family Medicine; Visit Provider Internal Medicine Medical Oncology
DX: C61 Malignant neoplasm of prostate (principal); Z85.048 Personal history of other malignant neoplasm of rectum, rectosigmoid junction, and anus; Z87.891 Personal history of nicotine dependence
CPT/HCPCS: 36415; 80053; 82378; 84153; 84403; 85025; 99214

== ENCOUNTER 2024-12-09 11:28 | Oncology outpatient (recurring) (ONCR) | payer MEDICARE, SELFPAY ==
[2024-12-09 11:55] LABS: Hematocrit 41.8 % (37-53); Hemoglobin 14.10 g/dL (11.27-16.99); Mean Corpuscular HGB Conc 33.7 g/dL (30-55); Mean Corpuscular Hemoglobin 28.3 pg (27-33); Mean Corpuscular Volume 83.9 fl (82-101); Nucleated Red Blood Cells % 0 %; Platelet Count 202 10^3/cmm (157-399); Red Blood Count 4.98 10^6/uL (3.85-5.65); White Blood Count 6.06 10^3/uL (3.29-11.43)
[2024-12-09 12:25] LABS: Alanine Aminotransferase 17 U/L (0-41); Albumin Level 4.1 g/dL (3.5-5.2); Alkaline Phosphatase 86 U/L (40-130); Anion Gap 16.2 (5-19); Aspartate Amino Transferase 21 U/L (0-40); Blood Urea Nitrogen 17 mg/dL (8-23); Calcium 9.6 mg/dL (8.5-10.5); Carbon Dioxide 21 mmol/L (22-29); Chloride 107 mmol/L (98-107); Creatinine Clr Calc Pharmacy 39.1294; Globulin 2.9 g/dL (1.3-4.6); Glucose 90 mg/dL (65-115); Osmolality Calculated 291 mOsm/kg (285-295); Potassium 4.2 mmol/L (3.5-5.1); Prostate Specific Antigen 1.320 ng/mL (0-4); Sodium 140 mmol/L (136-145); Total Protein 7.0 g/dL (6.6-8.7)
== END 2024-12-31 23:59 | disposition home or self-care (01) ==
PROVIDERS: PCP Family Medicine; Visit Provider Internal Medicine Medical Oncology
DX: C61 Malignant neoplasm of prostate (principal); Z85.048 Personal history of other malignant neoplasm of rectum, rectosigmoid junction, and anus; Z87.891 Personal history of nicotine dependence
CPT/HCPCS: 36415; 80053; 84153; 85025; 99214

== ENCOUNTER 2025-03-10 12:35 | Oncology outpatient (recurring) (ONCR) | payer MEDICARE, SELFPAY ==
[2025-03-10 12:57] LABS: Hematocrit 42.3 % (37-53); Hemoglobin 13.90 g/dL (11.27-16.99); Mean Corpuscular HGB Conc 32.9 g/dL (30-55); Mean Corpuscular Hemoglobin 28.3 pg (27-33); Mean Corpuscular Volume 86.0 fl (82-101); Nucleated Red Blood Cells % 0 %; Platelet Count 193 10^3/cmm (157-399); Red Blood Count 4.92 10^6/uL (3.85-5.65); White Blood Count 7.19 10^3/uL (3.29-11.43)
[2025-03-10 13:24] LABS: Alanine Aminotransferase 32 U/L (0-41); Albumin Level 3.9 g/dL (3.5-5.2); Alkaline Phosphatase 83 U/L (40-130); Anion Gap 14.4 (5-19); Aspartate Amino Transferase 29 U/L (0-40); Blood Urea Nitrogen 13 mg/dL (8-23); Calcium 9.5 mg/dL (8.5-10.5); Carbon Dioxide 24 mmol/L (22-29); Chloride 108 mmol/L (98-107); Globulin 2.9 g/dL (1.3-4.6); Glucose 99 mg/dL (65-115); Osmolality Calculated 294 mOsm/kg (285-295); Potassium 4.4 mmol/L (3.5-5.1); Prostate Specific Antigen 1.070 ng/mL (0-4); Sodium 142 mmol/L (136-145); Total Protein 6.8 g/dL (6.6-8.7)
== END 2025-04-02 23:59 | disposition home or self-care (01) ==
PROVIDERS: Nurse Practitioner Family; PCP Family Medicine; Visit Provider Internal Medicine Medical Oncology
DX: C61 Malignant neoplasm of prostate (principal); Z85.048 Personal history of other malignant neoplasm of rectum, rectosigmoid junction, and anus; Z87.891 Personal history of nicotine dependence; Z92.3 Personal history of irradiation
CPT/HCPCS: 36415; 80053; 84153; 85025; 99213